=== PATIENT | male | born 1970 | race Caucasian/White ===

== ENCOUNTER 2016-05-22 17:50 | Emergency (ER) | payer BC ==
[~2016-05-22] VITALS: Ht 165.1 cm; Wt 117.9 kg
[2016-05-22] MEDS ORDERED: VITA100037 PO (18:00)
[2016-05-22] MEDS ORDERED: APRI0.37 (18:00)
[2016-05-22] MEDS ORDERED: PROBCAP4 PO (18:00)
[2016-05-22] MEDS ORDERED: ATOR40TA (18:00)
[2016-05-22] MEDS ORDERED: ONDANSETRON 4MG/2ML VIAL (J2405) IV ONE (20:45)
[2016-05-22] MEDS ORDERED: NS 1,000 ML IV ONE (20:45)
[2016-05-22] MEDS ORDERED: KETOROLAC 30 MG/ML VIAL (J1885) IV ONE (20:45)
[2016-05-22 20:59] LABS: BASO % 0.2 % (0.0-1.0); EOS # 0.2 K/mm3 (0.0-0.50); EOS % 1.2 % (0.0-3.0); LARGE UNSTAINED CELL # 0.1 K/mm3 (0.0-0.4); LARGE UNSTAINED CELL % 0.5 % (0.0-4.0); LYMPH # 0.5 K/mm3 (1.5-4.5); MEAN CORPUSCULAR HEMOGLOBIN 29.4 pg (27.0-33.0); MEAN CORPUSCULAR HGB CONC 35.4 g/dl (32.0-36.5); MEAN CORPUSCULAR VOLUME 83.1 fl (80.0-96.0); MONO # 0.5 K/mm3 (0.0-0.8); MONO % 3.1 % (0.0-5.0); NEUTROPHILS # 13.5 K/mm3 (1.8-7.7); NEUTROPHILS % 92.1 % (36.0-66.0); PLATELET COUNT, AUTOMATED 282 k/mm3 (150-450); RED CELL DISTRIBUTION WIDTH 12.9 % (11.5-14.5); WHITE BLOOD COUNT 14.7 K/mm3 (4.0-10.0)
[2016-05-22 21:39] LABS: ALBUMIN 3.9 GM/DL (3.2-5.2); ALBUMIN/GLOBULIN RATIO 1.18 (1.00-1.93); ALKALINE PHOSPHATASE 102 U/L (45-117); ALT/SGPT 28 U/L (12-78); AMYLASE 34 U/L (25-115); ANION GAP 9 MEQ/L (8-16); AST/SGOT 26 U/L (15-37); BILIRUBIN,DIRECT 0.2 MG/DL (0.0-0.2); BILIRUBIN,TOTAL 1.6 MG/DL (0.2-1.0); BLOOD UREA NITROGEN 12 MG/DL (7-18); CALCIUM LEVEL 8.4 MG/DL (8.5-10.1); CARBON DIOXIDE LEVEL 23 MEQ/L (21-32); CHLORIDE LEVEL 105 MEQ/L (98-107); CREATININE FOR GFR 0.84 MG/DL (0.70-1.30); GLOMERULAR FILTRATION RATE > 60.0 (>60); GLUCOSE, FASTING 111 MG/DL (70-105); POTASSIUM SERUM 3.9 MEQ/L (3.5-5.1); SODIUM LEVEL 137 MEQ/L (136-145); TOTAL PROTEIN 7.2 GM/DL (6.4-8.2)
[2016-05-22] MEDS ORDERED: ZOFR4TAB3 PO (22:49)
[2016-05-22 22:55] VITALS: BP 132/69
--- NOTE | 2016-05-23 10:42 | ECGEPIP ---
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
== END 2016-05-22 23:01 | disposition home or self-care (01) ==
LOC: M ED 20:18
DX: A08.4 Viral intestinal infection, unspecified (principal); K51.90 Ulcerative colitis, unspecified, without complications; Z87.442 Personal history of urinary calculi; M19.90 Unspecified osteoarthritis, unspecified site
CPT/HCPCS: 36415; 80048; 80076; 81001; 82150; 83690; 85025; 93005; 96374; 96375; 99283; J1885; J2405

== ENCOUNTER → 2016-08-13 | Outpatient (REF) | payer BC ==
[~2016-08-13] MED LIST: APRI0.37; ATOR40TA; PROBCAP4 PO; VITA100037 PO; ZOFR4TAB3 PO
[2016-08-13 12:10] LABS: ALBUMIN 3.7 GM/DL (3.2-5.2); ALBUMIN/GLOBULIN RATIO 1.03 (1.00-1.93); ALKALINE PHOSPHATASE 92 U/L (45-117); ALT/SGPT 34 U/L (12-78); ANION GAP 5 MEQ/L (8-16); AST/SGOT 15 U/L (15-37); BILIRUBIN,TOTAL 0.9 MG/DL (0.2-1.0); BLOOD UREA NITROGEN 11 MG/DL (7-18); CARBON DIOXIDE LEVEL 31 MEQ/L (21-32); CHLORIDE LEVEL 107 MEQ/L (98-107); CHOLESTEROL LEVEL 180 MG/DL (<200); CREATININE FOR GFR 0.83 MG/DL (0.70-1.30); GLOMERULAR FILTRATION RATE > 60.0 (>60); GLUCOSE, FASTING 89 MG/DL (70-105); POTASSIUM SERUM 4.7 MEQ/L (3.5-5.1); SODIUM LEVEL 143 MEQ/L (136-145); TOTAL PROTEIN 7.3 GM/DL (6.4-8.2); TRIGLYCERIDES LEVEL 159 MG/DL (<150)
== END ==
LOC: M LABDRAW1 11:23
PROVIDERS: ATTEND Physician Assistant Medical
DX: E78.5 Hyperlipidemia, unspecified (principal); E55.9 Vitamin D deficiency, unspecified; Z00.00 Encounter for general adult medical examination without abnormal findings; Z12.5 Encounter for screening for malignant neoplasm of prostate

== ENCOUNTER → 2017-01-02 | Outpatient (REF) | payer BC ==
[~2017-01-02] MED LIST changes: -ATOR40TA; +ATOR40TA75; -VITA100037 PO; +VITA100067 PO
[2017-01-02 18:26] LABS: BASO % 0.5 % (0.0-1.0); EOS # 0.1 10^3/uL (0.0-0.50); EOS % 1.4 % (0.0-3.0); IMMATURE GRANULOCYTE % 0.2 % (0-0); LYMPH # 2.2 10^3/uL (1.5-4.5); LYMPH % 25.6 % (24.0-44.0); MEAN CORPUSCULAR HEMOGLOBIN 28.8 pg (27.0-33.0); MEAN CORPUSCULAR HGB CONC 34.1 g/dl (32.0-36.5); MEAN CORPUSCULAR VOLUME 84.5 fl (80.0-96.0); MONO # 0.7 10^3/uL (0.0-0.8); MONO % 8.4 % (0.0-5.0); NEUTROPHILS # 5.4 10^3/uL (1.8-7.7); NEUTROPHILS % 63.9 % (36.0-66.0); PLATELET COUNT, AUTOMATED 311 10^3/uL (150-450); RED CELL DISTRIBUTION WIDTH 12.8 % (11.5-14.5); WHITE BLOOD COUNT 8.5 10^3/uL (4.0-10.0)
[2017-01-02 20:22] LABS: ANION GAP 6 MEQ/L (8-16); BLOOD UREA NITROGEN 10 MG/DL (7-18); CALCIUM LEVEL 9.2 MG/DL (8.5-10.1); CARBON DIOXIDE LEVEL 30 MEQ/L (21-32); CHLORIDE LEVEL 105 MEQ/L (98-107); CHOLESTEROL LEVEL 216 MG/DL (<200); CREATININE FOR GFR 0.79 MG/DL (0.70-1.30); FREE T4 0.98 NG/DL (0.76-1.46); GLOMERULAR FILTRATION RATE > 60.0 (>60); GLUCOSE, FASTING 82 MG/DL (70-105); POTASSIUM SERUM 4.6 MEQ/L (3.5-5.1); SODIUM LEVEL 141 MEQ/L (136-145); TRIGLYCERIDES LEVEL 208 MG/DL (<150)
[2017-01-03 11:06] LABS: CONTROL LINE MONO INT CTR LINE PRESENT
== END ==
LOC: M LABDRAW1 14:40
PROVIDERS: ATTEND Physician Assistant Medical
DX: R53.83 Other fatigue (principal); E78.5 Hyperlipidemia, unspecified; R73.01 Impaired fasting glucose

== ENCOUNTER → 2017-03-20 | Outpatient (CLI) | payer BC | LOC: M SLEEP HO 11:39 | PROVIDERS: ATTEND Nurse Practitioner Adult Health | DX: G47.30 Sleep apnea, unspecified (principal) ==

== ENCOUNTER 2017-06-16 02:01 | Emergency (ER) | payer BC ==
[2017-06-16 03:32] LABS: BASO # 0.1 10^3/uL (0.0-0.2); BASO % 0.7 % (0.0-1.0); EOS # 0.2 10^3/uL (0.0-0.50); EOS % 1.9 % (0.0-3.0); HEMATOCRIT 44.6 % (42.0-52.0); HEMOGLOBIN 15.3 g/dl (14.0-18.0); IMMATURE GRANULOCYTE % 0.4 % (0-3.0); LYMPH # 2.7 10^3/uL (1.5-4.5); LYMPH % 26.2 % (24.0-44.0); MEAN CORPUSCULAR HEMOGLOBIN 28.9 pg (27.0-33.0); MEAN CORPUSCULAR HGB CONC 34.3 g/dl (32.0-36.5); MEAN CORPUSCULAR VOLUME 84.2 fl (80.0-96.0); MONO # 0.8 10^3/uL (0.0-0.8); MONO % 7.7 % (0.0-5.0); NEUTROPHILS # 6.5 10^3/uL (1.8-7.7); NEUTROPHILS % 63.1 % (36.0-66.0); PLATELET COUNT, AUTOMATED 339 10^3/uL (150-450); RED CELL DISTRIBUTION WIDTH 13.2 % (11.5-14.5); WHITE BLOOD COUNT 10.3 10^3/uL (4.0-10.0)
[2017-06-16 03:37] LABS: D-DIMER QUANT 395.9 ng/ml (<500)
[2017-06-16 03:44] LABS: ANION GAP 6 MEQ/L (8-16); BLOOD UREA NITROGEN 14 MG/DL (7-18); CALCIUM LEVEL 8.8 MG/DL (8.5-10.1); CARBON DIOXIDE LEVEL 27 MEQ/L (21-32); CHLORIDE LEVEL 109 MEQ/L (98-107); CPK CREATINE PHOSPHOKINASE 135 U/L (39-308); CREATININE FOR GFR 0.84 MG/DL (0.70-1.30); GLOMERULAR FILTRATION RATE > 60.0 (>60); GLUCOSE, FASTING 134 MG/DL (70-100); POTASSIUM SERUM 3.6 MEQ/L (3.5-5.1); SODIUM LEVEL 142 MEQ/L (136-145); TROPONIN I < 0.02 NG/ML (< 0.10)
[2017-06-16 03:45] LABS: CK-MB VALUE MASS 1.7 NG/ML (<3.6); MB/CK RELATIVE INDEX 1.25 (< OR =4)
[2017-06-16] MEDS: ASPIRIN 81 MG CHEW TABLET PO (04:13)
[2017-06-16] MEDS: NITROGLYCERIN 0.4 MG SUBL TABLET SL (04:14)
[2017-06-16] MEDS: GI COCKTAIL 50ML BTL(HYOSCYAMINE/MAALOX/LIDOCAINE VISCOUS)(1:3:1) PO (05:43)
== END 2017-06-16 07:00 | disposition home or self-care (01) ==
LOC: M ED 02:01
DX: K21.9 Gastro-esophageal reflux disease without esophagitis (principal); R94.31 Abnormal electrocardiogram [ECG] [EKG]; Z79.899 Other long term (current) drug therapy; Z87.19 Personal history of other diseases of the digestive system; Z82.49 Family history of ischemic heart disease and other diseases of the circulatory system
CPT/HCPCS: 71046

== ENCOUNTER → 2017-12-09 | Outpatient (REF) | payer BC ==
[2017-12-09 13:17] LABS: ALBUMIN 3.6 GM/DL (3.2-5.2); ALBUMIN/GLOBULIN RATIO 0.95 (1.00-1.93); ALKALINE PHOSPHATASE 106 U/L (45-117); ALT/SGPT 32 U/L (12-78); ANION GAP 11 MEQ/L (8-16); AST/SGOT 20 U/L (7-37); BLOOD UREA NITROGEN 11 MG/DL (7-18); CALCIUM LEVEL 8.5 MG/DL (8.5-10.1); CARBON DIOXIDE LEVEL 25 MEQ/L (21-32); CHLORIDE LEVEL 105 MEQ/L (98-107); CHOLESTEROL LEVEL 164 MG/DL (<200); CHOLESTEROL RISK RATIO 4.823 (<5); CREATININE FOR GFR 0.77 MG/DL (0.70-1.30); GLOMERULAR FILTRATION RATE > 60.0 (>60); GLUCOSE, FASTING 87 MG/DL (70-100); HDL CHOLESTEROL 34 MG/DL (>40); LDL CHOLESTEROL 101 MG/DL (<100); NON-HDL-C 130 MG/DL; POTASSIUM SERUM 3.6 MEQ/L (3.5-5.1); SODIUM LEVEL 141 MEQ/L (136-145); TOTAL PROTEIN 7.4 GM/DL (6.4-8.2); TRIGLYCERIDES LEVEL 143 MG/DL (<150)
== END ==
LOC: M LABDRAW1 08:09
DX: E78.5 Hyperlipidemia, unspecified (principal); R07.9 Chest pain, unspecified
CPT/HCPCS: 80053

== ENCOUNTER → 2018-05-22 | Outpatient (REF) | payer BC ==
[~2018-05-22] MED LIST changes: +MULTCHW14 PO; +OMEP40CA2 PO; +ZOFR4TAB14 PO; -ZOFR4TAB3 PO
[2018-05-22 18:21] LABS: BASO # 0.1 10^3/uL (0.0-0.2); BASO % 0.5 % (0.0-1.0); EOS # 0.2 10^3/uL (0.0-0.50); HEMATOCRIT 44.6 % (42.0-52.0); HEMOGLOBIN 15.2 g/dl (13.5-17.5); LYMPH # 2.2 10^3/uL (1.5-4.5); LYMPH % 21.7 % (24.0-44.0); MEAN CORPUSCULAR HEMOGLOBIN 28.2 pg (27.0-33.0); MEAN CORPUSCULAR HGB CONC 34.1 g/dl (32.0-36.5); MEAN CORPUSCULAR VOLUME 82.7 fl (80.0-96.0); MONO # 0.8 10^3/uL (0.0-0.8); MONO % 7.9 % (0.0-5.0); NEUTROPHILS # 6.9 10^3/uL (1.8-7.7); NEUTROPHILS % 67.5 % (36.0-66.0); PLATELET COUNT, AUTOMATED 337 10^3/uL (150-450); RED BLOOD COUNT 5.39 10^6/uL (4.30-6.10); WHITE BLOOD COUNT 10.3 10^3/uL (4.0-10.0)
[2018-05-22 19:31] LABS: ERYTHROCYTE SEDIMENTATION RATE 9 mm/hr (0-15)
== END ==
LOC: M LAB REF 17:02 → M LABDRAW1 17:02
PROVIDERS: ATTEND Physician Assistant Medical
DX: K62.5 Hemorrhage of anus and rectum (principal)

== ENCOUNTER → 2018-05-23 | Outpatient (REF) | payer BC | LOC: M LAB REF 16:42 | PROVIDERS: ATTEND Physician Assistant Medical | DX: K62.5 Hemorrhage of anus and rectum (principal) ==

== ENCOUNTER 2018-06-03 20:58 | Emergency (ER) | payer BC ==
[~2018-06-03] VITALS: Ht 165.1 cm; Wt 127.3 kg
[~2018-06-03 20:58] MED LIST changes: -APRI0.37; +APRI0.37 PO; -ATOR40TA75; +ATOR40TA75 PO
[2018-06-03] MEDS ORDERED: HYDR12.55 PO (21:17)
[2018-06-03 21:35] LABS: APPEARANCE, URINE HAZY (CLEAR); BACTERIA, URINE AUTO NEGATIVE (NEGATIVE); BILIRUBIN, URINE AUTO NEGATIVE (NEGATIVE); BLOOD, URINE BLOOD 3+ (NEGATIVE); COLOR, URINE YELLOW (YELLOW); GLUCOSE, URINE (UA) AUTO NEGATIVE (NEGATIVE); KETONE, URINE AUTO NEGATIVE (NEGATIVE); LEUKOCYTE ESTERASE, URINE AUTO NEGATIVE (NEGATIVE); MUCUS, URINE SMALL (NEGATIVE); NITRITE, URINE AUTO NEGATIVE (NEGATIVE); PROTEIN, URINE AUTO 1+ mg/dL (NEGATIVE); RBC, URINE AUTO TNTC /HPF (0-3); SPECIFIC GRAVITY URINE AUTO 1.029 (1.002-1.035); SQUAMOUS EPITHELIAL CELL UR AU 0 /HPF (0-6); WBC, URINE AUTO 7 /HPF (0-3)
[2018-06-03 22:25] LABS: BASO # 0.1 10^3/uL (0.0-0.2); BASO % 0.5 % (0.0-1.0); EOS # 0.1 10^3/uL (0.0-0.50); EOS % 1.2 % (0.0-3.0); HEMATOCRIT 45.8 % (42.0-52.0); HEMOGLOBIN 15.4 g/dl (13.5-17.5); LYMPH # 2.1 10^3/uL (1.5-4.5); LYMPH % 20.6 % (24.0-44.0); MEAN CORPUSCULAR HEMOGLOBIN 28.3 pg (27.0-33.0); MEAN CORPUSCULAR HGB CONC 33.6 g/dl (32.0-36.5); MEAN CORPUSCULAR VOLUME 84.2 fl (80.0-96.0); MONO # 0.8 10^3/uL (0.0-0.8); MONO % 7.9 % (0.0-5.0); NEUTROPHILS # 7.2 10^3/uL (1.8-7.7); NEUTROPHILS % 69.5 % (36.0-66.0); PLATELET COUNT, AUTOMATED 325 10^3/uL (150-450); RED BLOOD COUNT 5.44 10^6/uL (4.30-6.10); WHITE BLOOD COUNT 10.3 10^3/uL (4.0-10.0)
[2018-06-03 22:50] LABS: BLOOD UREA NITROGEN 15 MG/DL (7-18); CALCIUM LEVEL 8.9 MG/DL (8.5-10.1); CARBON DIOXIDE LEVEL 30 MEQ/L (21-32); CHLORIDE LEVEL 107 MEQ/L (98-107); CREATININE FOR GFR 0.94 MG/DL (0.70-1.30); GLOMERULAR FILTRATION RATE > 60.0 (>60); GLUCOSE, FASTING 105 MG/DL (70-100); POTASSIUM SERUM 4.2 MEQ/L (3.5-5.1); SODIUM LEVEL 143 MEQ/L (136-145)
[2018-06-03] MEDS ORDERED: FLOM0.4C39 PO (23:33)
--- NOTE | 2018-06-03 23:37 | REPVR ---
EXAM: CT Abdomen and Pelvis Without Contrast EXAM DATE/TIME: 06/03/2018 10:32 PM CLINICAL HISTORY: 47 years old, male; Pain; Abdominal pain; Flank; Left; Additional info: L flank pain, h/o kidney stones TECHNIQUE: Axial computed tomography images of the abdomen and pelvis without contrast. All CT scans at this facility use at least one of these dose optimization techniques: automated exposure control; mA and/or kV adjustment per patient size (includes targeted exams where dose is matched to clinical indication); or iterative reconstruction. Coronal and sagittal reformatted images were created and reviewed. COMPARISON: CT ABD PELVIS W/O CONTRAST 04/29/2015 9:47 AM FINDINGS: Lower thorax: No acute findings. ABDOMEN: Liver: Normal. No mass. Gallbladder and bile ducts: Normal. No calcified stones. No ductal dilation. Pancreas: Normal. No ductal dilation. Spleen: Normal. No splenomegaly. Adrenals: Normal. No mass. Kidneys and ureters: Calculus in the left renal pelvis may be obstructive. No significant hydronephrosis. Punctate really visible density near the right UV junction may represent a small calculus. No significant hydroureteronephrosis on the right. 14 millimeters cyst in the lower pole of left kidney. Stomach and bowel: 3.3 x 3.6 cm. polypoid filling defect in the cecum adjacent to the ileocecal valve. Polypoid mass not excluded and should be correlated with colonoscopy or barium enema. Appendix: No evidence of appendicitis. PELVIS: Bladder: Unremarkable as visualized. Reproductive: The prostate gland demonstrates moderate hyperplasia. ABDOMEN and PELVIS: Intraperitoneal space: Normal. No free air. No significant fluid collection. Bones/joints: The spine demonstrates mild degenerative changes. Soft tissues: Unremarkable. Vasculature: Normal. No abdominal aortic aneurysm. Lymph nodes: Normal. No enlarged lymph nodes. IMPRESSION: 1. Calculus in the left renal pelvis may be obstructive. No significant hydronephrosis. 2. Punctate really visible density near the right UV junction may represent a small calculus. No significant hydroureteronephrosis on the right. 3. Moderate prostatic hyperplasia. 4. 3.3 x 3.6 cm. polypoid filling defect in the cecum adjacent to the ileocecal valve. Polypoid mass not excluded and should be correlated with colonoscopy or barium enema. COMMENT: Consistent with the [employer] Incidental Findings Committee Report (J Am Romina Radiol 2010): Unless the patients specific circumstances suggest otherwise, any liver lesion 0.5 cm or less, any cystic kidney lesion less than 1.0 cm, and/or any adrenal lesion 1.0 cm or less not otherwise characterized in this report as possessing suspicious or indeterminate imaging features is/are highly likely to be benign and do not require follow-up imaging or biopsy. Electronically signed by: Amarjit Huynh On 06/03/2018 23:36:43 PM
[2018-06-04] MEDS ORDERED: ZOFR4TAB16 PO (00:02)
[2018-06-04] MEDS ORDERED: [UNRECOGNIZED DRUG - CODE] XX (00:03)
[2018-06-04 00:07] VITALS: BP 122/76
--- NOTE | 2018-06-04 15:29 | ED PDOC ---
Post-Departure Follow-Up fidel han faxed formal report of ct abd/p fo rfu Landy Bradshaw MD Jun 04, 2018 15:29
[2018-06-16] MEDS ORDERED: LOSA25TA14 PO (15:48)
[2018-06-16] MEDS ORDERED: ZOFR4TAB16 PO (15:48)
== END 2018-06-04 00:17 | disposition home or self-care (01) ==
LOC: M ED 20:58
DX: N20.0 Calculus of kidney (principal); N20.1 Calculus of ureter; K51.90 Ulcerative colitis, unspecified, without complications; I10 Essential (primary) hypertension; E78.5 Hyperlipidemia, unspecified; Z79.899 Other long term (current) drug therapy

== ENCOUNTER → 2018-06-05 | Outpatient (CLI) | payer BC ==
[~2018-06-05] MED LIST changes: +APRI0.37; -APRI0.37 PO; +ATOR40TA75; -ATOR40TA75 PO; +FLOM0.4C39 PO; +HYDR12.55 PO; +ZOFR4TAB16 PO; +[UNRECOGNIZED DRUG - CODE] XX
--- NOTE | 2018-06-06 03:02 | REP ---
Clinical: Kidney stone. Technique: Two supine views of the abdomen and pelvis. Findings: Small 3 mm nonobstructing left renal calculus cannot be excluded. Further evaluation of the urinary tract system is significantly limited due to overlying bowel gas and technique. Skeletal structures are intact. No bowel obstruction. Phleboliths noted in the pelvis. Impression: 3 mm nonobstructing left renal calculus suggested. Electronically Signed by Bryce Aguilar MD 06/06/2018 02:53 A
== END ==
LOC: M SMT 08:59
PROVIDERS: ATTEND Nurse Practitioner Family
DX: N20.0 Calculus of kidney (principal)

== ENCOUNTER → 2018-06-16 | Outpatient (REF) | payer BC ==
[~2018-06-16] MED LIST changes: -APRI0.37; +APRI0.37 PO; -ATOR40TA75; +ATOR40TA75 PO; +BACT800T5 PO; +LOSA25TA14 PO; +NORC1TAB4 PO; +TYLETAB14 PO
[2018-06-16 17:21] LABS: HEMATOCRIT 42.2 % (42.0-52.0); HEMOGLOBIN 14.4 g/dl (13.5-17.5); MEAN CORPUSCULAR HGB CONC 34.1 g/dl (32.0-36.5); MEAN CORPUSCULAR VOLUME 81.9 fl (80.0-96.0); PLATELET COUNT, AUTOMATED 338 10^3/uL (150-450); RED BLOOD COUNT 5.15 10^6/uL (4.30-6.10); WHITE BLOOD COUNT 11.6 10^3/uL (4.0-10.0)
[2018-06-16 17:30] LABS: BLOOD UREA NITROGEN 12 MG/DL (7-18); CALCIUM LEVEL 9.1 MG/DL (8.5-10.1); CARBON DIOXIDE LEVEL 30 MEQ/L (21-32); CHLORIDE LEVEL 104 MEQ/L (98-107); GLOMERULAR FILTRATION RATE > 60.0 (>60); GLUCOSE, FASTING 90 MG/DL (70-100); INR 0.98; PROTHROMBIN TIME 13.1 SECONDS (12.1-14.4); SODIUM LEVEL 141 MEQ/L (136-145)
[2018-06-16 17:31] LABS: PARTIAL THROMBOPLASTIN TIME 32.9 SECONDS (25.4-37.6)
== END ==
LOC: M LABDRAW1 15:29
PROVIDERS: ATTEND Nurse Practitioner Family
DX: Z01.818 Encounter for other preprocedural examination (principal); N20.0 Calculus of kidney

== ENCOUNTER → 2018-06-17 | Outpatient (CLI) | payer BC ==
--- NOTE | 2018-06-18 21:22 | ECGEPIP ---
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
== END ==
LOC: M EKG 15:03
PROVIDERS: ATTEND Anesthesiology
DX: Z01.818 Encounter for other preprocedural examination (principal); I10 Essential (primary) hypertension; G47.9 Sleep disorder, unspecified

== ENCOUNTER 2018-06-19 06:26 | Day surgery (SDC) | payer BC ==
[~2018-06-19] VITALS: Ht 165.1 cm; Wt 122.9 kg
[~2018-06-19 06:26] MED LIST changes: -BACT800T5 PO; +LIDOCAINE 1% MDV 20ML VIAL SQ PRN; +LR 1,000 ML IV ONE; -NORC1TAB4 PO; -TYLETAB14 PO; +ceFAZolin SOD 1 GM in D5W MINI-BAG PLUS 50 ML IV ONE
[2018-06-19] MEDS ORDERED: PROPOFOL 200 MG/20 ML VIAL As Ordered ONE ×2 (07:10→07:57)
[2018-06-19] MEDS ORDERED: fentaNYL 100 MCG/2 ML INJECTION (J3010) As Ordered ONE (07:10)
[2018-06-19] MEDS ORDERED: MIDAZOLAM INJ 2 MG/2 ML VIAL (J2250) As Ordered ONE (07:10)
[2018-06-19] MEDS ORDERED: LIDOCAINE 2% INJ 100 MG/5 ML SDV (FOR ANES.) As Ordered ONE (07:10)
[2018-06-19] MEDS ORDERED: SCOPOLAMINE 1MG TRANSDERMAL PATCH As Ordered ONE (07:14)
[2018-06-19] MEDS ORDERED: ONDANSETRON 4MG/2ML VIAL (J2405) As Ordered ONE (07:41)
[2018-06-19] MEDS ORDERED: dexameTHASONE 4 MG/ML 1ML VIAL (J1100) As Ordered ONE (07:41)
[2018-06-19] MEDS ORDERED: PHENYLephrine HCL 500 MCG/5 ML (100MCG/ML) SYRINGE (J2370) As Ordered ONE (07:44)
[2018-06-19] MEDS ORDERED: TYLETAB14 PO (08:43)
[2018-06-19] MEDS ORDERED: ACETAMINOPH W/CODEINE #3 TAB UD PO PRN (08:45)
--- NOTE | 2018-06-19 09:08 | REP ---
KUB: Single view. History: Kidney stones. Comparison is made with CT study from June 03, 2018. Findings: Bowel gas pattern is unremarkable. Transitionalized lumbosacral junction is seen. There is a 4 mm calcific density projecting over the lower pole left kidney superimposed on the tip of the left 12th rib. This corresponds with the recent CT findings. No other urinary tract calculus is appreciated. There are phleboliths in the pelvis. Electronically Signed by Kayode Espnio MD 06/19/2018 12:00 P
[2018-06-19 09:30] VITALS: BP 154/84
[2018-06-19] MEDS ORDERED: SCOPOLAMINE 1MG TRANSDERMAL PATCH TOP ONE (12:00)
--- NOTE | 2018-06-19 17:14 | RO ---
DATE OF PROCEDURE: 06/19/2018 PREOPERATIVE DIAGNOSIS: 6 mm left mid renal pelvic stone. POSTOPERATIVE DIAGNOSIS: 6 mm left mid renal pelvic stone. PROCEDURE: Left extracorporeal shock wave lithotripsy. SURGEON: Dr. Mary Quick GLASSWARE SELECTOR: ANESTHESIA: Monitored anesthesia care (MAC). COMPLICATIONS: None. INDICATIONS FOR PROCEDURE: The patient is a 47-year-old gentleman who was seen in the emergency room on 06/03/2018 with flank pain. A CT scan was done, and this showed a stone in the left renal pelvis measuring 6 mm. He has passed several stones in the past. After discussing all different options, alternatives, risks and benefits, he decided to proceed with left extracorporeal shock wave lithotripsy. All different options, alternatives, risks and benefits were discussed and informed consent was obtained in both verbal and written form. DESCRIPTION OF PROCEDURE: The patient was brought into the operating room. Sequential compression devices were in place and preoperative antibiotics were given with Ancef 3 grams. Anesthesia was induced and using a combination of fluoroscopy and ultrasound, the stone was very well visualized. He then had a total of 2500 shocks with power levels starting at 1 up to 20. The patient tolerated the procedure well and was returned to the recovery room in stable condition. Tylenol #3 was sent to his pharmacy electronically through [employer]. A postoperative appointment had been made.
[2018-06-20] MEDS ORDERED: BACT800T5 PO (10:22)
[2018-06-20] MEDS ORDERED: NORC1TAB4 PO (10:32)
== END 2018-06-19 09:35 | disposition home or self-care (01) ==
LOC: M SDC 06:26
PROVIDERS: ATTEND Specialist
DX: N20.0 Calculus of kidney (principal); I10 Essential (primary) hypertension; G47.30 Sleep apnea, unspecified; Z79.899 Other long term (current) drug therapy; E66.01 Morbid (severe) obesity due to excess calories
CPT/HCPCS: 50590; 74018; J0690; J1100; J2250; J2370; J2405; J3010

== ENCOUNTER 2018-06-20 07:14 | Emergency (ER) | payer BC ==
[~2018-06-20] VITALS: Ht 165.1 cm; Wt 125.3 kg
[~2018-06-20 07:14] MED LIST changes: -LIDOCAINE 1% MDV 20ML VIAL SQ PRN; -LR 1,000 ML IV ONE; +TYLETAB14 PO; -ceFAZolin SOD 1 GM in D5W MINI-BAG PLUS 50 ML IV ONE
[2018-06-20 08:06] LABS: BASO % 0.2 % (0.0-1.0); EOS % 0.1 % (0.0-3.0); HEMATOCRIT 40.2 % (42.0-52.0); HEMOGLOBIN 14.2 g/dl (13.5-17.5); LYMPH # 2.4 10^3/uL (1.5-4.5); LYMPH % 13.8 % (24.0-44.0); MEAN CORPUSCULAR HEMOGLOBIN 28.5 pg (27.0-33.0); MEAN CORPUSCULAR HGB CONC 35.3 g/dl (32.0-36.5); MEAN CORPUSCULAR VOLUME 80.7 fl (80.0-96.0); MONO # 1.1 10^3/uL (0.0-0.8); MONO % 6.3 % (0.0-5.0); NEUTROPHILS # 13.5 10^3/uL (1.8-7.7); NEUTROPHILS % 79.1 % (36.0-66.0); PLATELET COUNT, AUTOMATED 330 10^3/uL (150-450); RED BLOOD COUNT 4.98 10^6/uL (4.30-6.10); WHITE BLOOD COUNT 17.1 10^3/uL (4.0-10.0)
--- NOTE | 2018-06-20 08:19 | REP ---
CT abdomen and pelvis without IV or oral contrast: Renal stone protocol. History: Renal colic. The patient status post lithotripsy. Comparison study: June 03, 2018. Findings: There is a 3 mm intrarenal calculus in the lower pole collecting system of the left kidney along with a tiny 1-2 mm calculus. There are two 3 mm stone fragments in the distal ureter on the left causing minimal left-sided hydronephrosis. The most distal of these is in the intramural segment of the ureterovesical junction. The other is just 1 cm above this. No right sided hydronephrosis or right-sided urinary tract calculus is seen. There is a small cyst again noted in the lower pole left kidney. Dystrophic calcifications are visible in the prostate. Impression: There are two 3 mm urinary tract calculi in the distal ureter on the left causing minimal left-sided hydronephrosis. The most distal of these is in the ureterovesical junction. Electronically Signed by Kayode Espino MD 06/20/2018 08:11 A
[2018-06-20 08:30] LABS: BLOOD UREA NITROGEN 13 MG/DL (7-18); CALCIUM LEVEL 8.4 MG/DL (8.5-10.1); CARBON DIOXIDE LEVEL 23 MEQ/L (21-32); CHLORIDE LEVEL 105 MEQ/L (98-107); CREATININE FOR GFR 0.98 MG/DL (0.70-1.30); GLOMERULAR FILTRATION RATE > 60.0 (>60); GLUCOSE, FASTING 145 MG/DL (70-100); POTASSIUM SERUM 3.4 MEQ/L (3.5-5.1); SODIUM LEVEL 138 MEQ/L (136-145)
[2018-06-20] MEDS: ONDANSETRON 4MG/2ML VIAL (J2405) IV ONE (08:37)
[2018-06-20] MEDS: KETOROLAC 30 MG/ML VIAL (J1885) IV ONE (08:37)
[2018-06-20] MEDS: TAMSULOSIN 0.4 MG CAP PO ONE (08:37)
[2018-06-20] MEDS: DILUENT IV ONE (08:38)
[2018-06-20] MEDS: KETAMINE IV ONE (08:38)
[2018-06-20] MEDS: NS 1,000 ML IV ONE (08:38)
[2018-06-20] MEDS: NACL IV ONE (08:38)
[2018-06-20] MEDS: LIDOCAINE 2% 5ML JELLY UROJET TOP ONE (09:39)
[2018-06-20] MEDS ORDERED: BACT800T5 PO (10:22)
[2018-06-20] MEDS: POTASSIUM CHLORIDE 10 MEQ SR TABLET PO ONE (10:28)
[2018-06-20] MEDS: BACTRIM 160MG/800MG DS TAB PO ONE (10:28)
[2018-06-20] MEDS ORDERED: NORC1TAB7 PO (10:32)
[2018-06-20 11:19] VITALS: BP 117/56
== END 2018-06-20 11:37 | disposition home or self-care (01) ==
LOC: M ED 07:14
DX: N20.0 Calculus of kidney (principal); Z98.890 Other specified postprocedural states; Z87.442 Personal history of urinary calculi; Z79.899 Other long term (current) drug therapy
CPT/HCPCS: 51701; 74176; 80048; 81001; 85025; 93041; 96365; 96366; 96375; 99285; J1885; J2405

== ENCOUNTER 2018-06-26 10:07 | Day surgery (SDC) | payer BC ==
[~2018-06-26] VITALS: Ht 165.1 cm; Wt 121.1 kg
[~2018-06-26 10:07] MED LIST changes: +BACT800T5 PO; +LIDOCAINE 2% INJ 100 MG/5 ML SDV (FOR ANES.) As Ordered ONE; +NORC1TAB7 PO; +PROPOFOL 200 MG/20 ML VIAL As Ordered ONE
[2018-06-26] MEDS: NS 1,000 ML IV ONE (10:40)
--- NOTE | 2018-06-26 11:57 | ROOR ---
Patient Name: Adryan Chavez Procedure Date: 06/26/2018 11:31 AM Date of : 1970 Age: 47 Room: [facility] Gender: Male Note Status: Finalized Procedure: Colonoscopy Indications: Follow-up of ulcerative colitis, Abnormal CT of the GI tract Providers: Larry Valdes Jr, MD Referring MD: ANUJA PADILLA Requesting Provider: Medicines: Propofol per Anesthesia Complications: No immediate complications. Procedure: Pre-Anesthesia Assessment: - Prior to the procedure, a History and Physical was performed, and patient medications and allergies were reviewed. The patient is competent. The risks and benefits of the procedure and the sedation options and risks were discussed with the patient. All questions were answered and informed consent was obtained. Patient identification and proposed procedure were verified by the physician and the nurse in the pre-procedure area and in the procedure room. Mental Status Examination: alert and oriented. Airway Examination: normal oropharyngeal airway and neck mobility. Respiratory Examination: clear to auscultation. CV Examination: normal. ASA Grade Assessment: II - A patient with mild systemic disease. After reviewing the risks and benefits, the patient was deemed in satisfactory condition to undergo the procedure. The anesthesia plan was to use moderate sedation / analgesia (conscious sedation). Immediately prior to administration of medications, the patient was re-assessed for adequacy to receive sedatives. The heart rate, respiratory rate, oxygen saturations, blood pressure, adequacy of pulmonary ventilation, and response to care were monitored throughout the procedure. The physical status of the patient was re-assessed after the procedure. The Colonoscope was introduced through the anus and advanced to the cecum, identified by appendiceal orifice and ileocecal valve. The colonoscopy was performed without difficulty. The patient tolerated the procedure well. The quality of the bowel preparation was adequate. Findings: The rectum, recto-sigmoid colon, sigmoid colon, descending colon, transverse colon, ascending colon, cecum, appendiceal orifice and ileocecal valve appeared normal. Nonbleeding ulcerated mucosa with stigmata of recent bleeding were present at the ileocecal valve. Biopsies were taken with a cold forceps for histology. Impression: - The rectum, recto-sigmoid colon, sigmoid colon, descending colon, transverse colon, ascending colon, cecum, appendiceal orifice and ileocecal valve are normal. - Mucosal ulceration. Biopsied. Recommendation: - Discharge patient to home (ambulatory). - Repeat colonoscopy in 5 years for screening purposes. Larry Valdes MD Larry Valdes Jr, MD 06/26/2018 11:57:11 AM Electronically signed by Larry Valdes Jr, MD Number of Addenda: 0 Note Initiated On: 06/26/2018 11:31 AM Estimated Blood Loss: Estimated blood loss: none.
[2018-06-26 12:20] VITALS: BP 134/87
== END 2018-06-26 12:29 | disposition home or self-care (01) ==
LOC: M OPP 10:07
PROVIDERS: ATTEND Surgery
DX: R93.3 Abnormal findings on diagnostic imaging of other parts of digestive tract (principal); Z87.19 Personal history of other diseases of the digestive system

== ENCOUNTER → 2018-07-09 | Outpatient (CLI) | payer BC ==
[~2018-07-09] MED LIST changes: -LIDOCAINE 2% INJ 100 MG/5 ML SDV (FOR ANES.) As Ordered ONE; -PROPOFOL 200 MG/20 ML VIAL As Ordered ONE
--- NOTE | 2018-07-09 11:49 | REP ---
KUB: Two views. HISTORY: Kidney stone. COMPARISON STUDY: June 19, 2018. FINDINGS: Visualized bowel gas pattern is normal. Air and stool seen in a nondistended colon. Psoas margins and flank stripes are intact. No urinary tract calculus is visible. There are phleboliths in the right pelvis. Electronically Signed by Kayode Espino MD 07/09/2018 08:05 P
== END ==
LOC: M SMT 09:02
PROVIDERS: ATTEND Nurse Practitioner Women's Health
DX: I87.8 Other specified disorders of veins (principal)

== ENCOUNTER → 2018-09-03 | Outpatient (REF) | payer BC ==
[2018-09-03 16:08] LABS: BLOOD UREA NITROGEN 14 MG/DL (7-18); CALCIUM LEVEL 8.8 MG/DL (8.5-10.1); CARBON DIOXIDE LEVEL 29 MEQ/L (21-32); CHLORIDE LEVEL 105 MEQ/L (98-107); CREATININE FOR GFR 0.93 MG/DL (0.70-1.30); GLOMERULAR FILTRATION RATE > 60.0 (>60); GLUCOSE, FASTING 97 MG/DL (70-100); POTASSIUM SERUM 3.9 MEQ/L (3.5-5.1); SODIUM LEVEL 141 MEQ/L (136-145)
== END ==
LOC: M LABDRAW1 13:58
PROVIDERS: ATTEND Physician Assistant Medical
DX: I10 Essential (primary) hypertension (principal)

== ENCOUNTER 2019-02-17 21:02 | Emergency (ER) | payer BC ==
[~2019-02-17] VITALS: Ht 165.1 cm; Wt 126.4 kg
[~2019-02-17 21:02] MED LIST changes: -OMEP40CA2 PO; +OMEP40CA97 PO
[2019-02-17 21:52] LABS: BASO % 0.2 % (0.0-1.0); HEMOGLOBIN 14.9 g/dl (13.5-17.5); LYMPH # 0.9 10^3/uL (1.5-5.0); LYMPH % 4.9 % (24.0-44.0); MEAN CORPUSCULAR HEMOGLOBIN 28.2 pg (27.0-33.0); MEAN CORPUSCULAR HGB CONC 34.7 g/dl (32.0-36.5); MEAN CORPUSCULAR VOLUME 81.4 fl (80.0-96.0); MONO # 0.9 10^3/uL (0.0-0.8); MONO % 5.3 % (0.0-5.0); NEUTROPHILS # 15.7 10^3/uL (1.5-8.5); NEUTROPHILS % 89.1 % (36.0-66.0); PLATELET COUNT, AUTOMATED 286 10^3/uL (150-450); RED BLOOD COUNT 5.28 10^6/uL (4.30-6.10); WHITE BLOOD COUNT 17.6 10^3/uL (4.0-10.0)
[2019-02-17] MEDS ORDERED: NS 1,000 ML IV ONE (22:15)
[2019-02-17 22:18] LABS: ALBUMIN 3.7 GM/DL (3.2-5.2); ALT/SGPT 30 U/L (12-78); BILIRUBIN,DIRECT 0.3 MG/DL (0.0-0.2); BILIRUBIN,TOTAL 1.6 MG/DL (0.2-1.0); BLOOD UREA NITROGEN 12 MG/DL (7-18); CALCIUM LEVEL 8.8 MG/DL (8.5-10.1); CARBON DIOXIDE LEVEL 25 MEQ/L (21-32); CHLORIDE LEVEL 102 MEQ/L (98-107); CREATININE FOR GFR 0.84 MG/DL (0.70-1.30); GLOMERULAR FILTRATION RATE > 60.0 (>60); GLUCOSE, FASTING 119 MG/DL (70-100); LIPASE 77 U/L (73-393); POTASSIUM SERUM 3.5 MEQ/L (3.5-5.1); SODIUM LEVEL 136 MEQ/L (136-145); TOTAL PROTEIN 7.4 GM/DL (6.4-8.2)
[2019-02-17] MEDS ORDERED: ISOVUE-370 76% 100ML VIAL (Q9967) As Ordered ONE (23:14)
[2019-02-17] MEDS ORDERED: KETOROLAC 30 MG/ML VIAL (J1885) IV ONE (23:45)
[2019-02-17] MEDS ORDERED: ONDANSETRON 4MG/2ML VIAL (J2405) IV ONE (23:45)
--- NOTE | 2019-02-18 00:28 | REPVR ---
PROCEDURE INFORMATION: Exam: CT Abdomen And Pelvis Without And With Contrast Exam date and time: 02/17/2019 11:45 PM Age: 48 years old Clinical history: Abdominal pain; Flank; Additional info: Flank pain, HX of ulcerative colitis TECHNIQUE: Imaging protocol: Computed tomography of the abdomen and pelvis without and with intravenous contrast. Radiation optimization: All CT scans at this facility use at least one of these dose optimization techniques: automated exposure control; mA and/or kV adjustment per patient size (includes targeted exams where dose is matched to clinical indication); or iterative reconstruction. Contrast material: ISOVUE 370; Contrast volume: 100 ml; Contrast route: IV; COMPARISON: CT ABD PELVIS W/O CONTRAST 06/20/2018 7:50 AM FINDINGS: Lungs: Minimal bilateral lower lobe dependent atelectasis. Liver: Normal. No mass. Gallbladder and bile ducts: Normal. No calcified stones. No ductal dilation. Pancreas: Normal. No ductal dilation. Spleen: Normal. No splenomegaly. Adrenals: Normal. No mass. Kidneys and ureters: There is a left renal cyst measuring up to 15 mm. Minimal nonobstructing right renal calculus in the upper pole. Stomach and bowel: Unremarkable. No obstruction. No mucosal thickening. Appendix: The appendix measures up to 9 mm with no surrounding induration and is similar to the prior study and apparently within normal limits. Intraperitoneal space: Unremarkable. No free air. No significant fluid collection. Vasculature: Unremarkable. No abdominal aortic aneurysm. Lymph nodes: Unremarkable. No enlarged lymph nodes. Bladder: Unremarkable as visualized. Reproductive: There is mild prostatic enlargement. Bones/joints: Facet arthropathy of the lumbar spine with slightly increased lumbar lordosis. Slight anterior wedge configuration of T11 which appears to be chronic. Soft tissues: Unremarkable. IMPRESSION: 1. Minimal nonobstructing right renal calculus. There is interval absence of nonobstructing left renal calculi since 06/20/2018. No ureteral calculi are evident and there is no evidence of obstructive uropathy. 2. The appendix measures up to 9 mm with no surrounding induration and is similar to the prior study and consistent with normal variant and within normal limits. 3. Mild prostatic enlargement which is similar to prior study. Electronically signed by: Carmine Gusman On 02/18/2019 00:27:42 AM
[2019-02-18] MEDS ORDERED: ZOFR8TAB24 PO (01:16)
[2019-02-18] MEDS ORDERED: KETO10TAB PO (01:17)
[2019-02-18 01:33] VITALS: BP 128/82
== END 2019-02-18 01:34 | disposition home or self-care (01) ==
LOC: M ED 21:02
DX: N20.0 Calculus of kidney (principal); I10 Essential (primary) hypertension; E78.5 Hyperlipidemia, unspecified; K21.9 Gastro-esophageal reflux disease without esophagitis; K51.90 Ulcerative colitis, unspecified, without complications; Z79.899 Other long term (current) drug therapy
CPT/HCPCS: 74178; 80048; 80076; 81001; 83690; 85025; 96361; 96374; 96375; 99284; J1885; J2405; Q9967

== ENCOUNTER → 2019-04-20 | Outpatient (REF) | payer BC ==
[~2019-04-20] MED LIST changes: +KETO10TAB PO; +ZOFR8TAB24 PO
[2019-04-20 18:09] LABS: BASO % 0.5 % (0.0-1.0); EOS # 0.1 10^3/uL (0.0-0.5); EOS % 1.2 % (0.0-3.0); HEMATOCRIT 47.8 % (42.0-52.0); HEMOGLOBIN 15.6 g/dl (13.5-17.5); LYMPH # 2.3 10^3/uL (1.5-5.0); LYMPH % 27.9 % (24.0-44.0); MEAN CORPUSCULAR HEMOGLOBIN 27.8 pg (27.0-33.0); MEAN CORPUSCULAR HGB CONC 32.6 g/dl (32.0-36.5); MEAN CORPUSCULAR VOLUME 85.1 fl (80.0-96.0); MONO # 0.6 10^3/uL (0.0-0.8); MONO % 7.5 % (0.0-5.0); NEUTROPHILS # 5.2 10^3/uL (1.5-8.5); NEUTROPHILS % 62.5 % (36.0-66.0); PLATELET COUNT, AUTOMATED 323 10^3/uL (150-450); RED BLOOD COUNT 5.62 10^6/uL (4.30-6.10); WHITE BLOOD COUNT 8.3 10^3/uL (4.0-10.0)
[2019-04-20 18:26] LABS: ALT/SGPT 31 U/L (12-78); BILIRUBIN,TOTAL 1.2 MG/DL (0.2-1.0); BLOOD UREA NITROGEN 12 MG/DL (7-18); CALCIUM LEVEL 9.5 MG/DL (8.5-10.1); CARBON DIOXIDE LEVEL 30 MEQ/L (21-32); CHLORIDE LEVEL 105 MEQ/L (98-107); CHOLESTEROL LEVEL 179 MG/DL (<200); CHOLESTEROL RISK RATIO 5.264 (<5); CREATININE FOR GFR 0.91 MG/DL (0.70-1.30); GLOMERULAR FILTRATION RATE > 60.0 (>60); GLUCOSE, FASTING 97 MG/DL (70-100); HDL CHOLESTEROL 34 MG/DL (>40); LDL CHOLESTEROL 106 MG/DL (<100); NON-HDL-C 145 MG/DL; SODIUM LEVEL 140 MEQ/L (136-145); TOTAL 25(OH) VITAMIN D 40.2 NG/ML (30.0-100.0); TOTAL PROTEIN 7.6 GM/DL (6.4-8.2); TRIGLYCERIDES LEVEL 196 MG/DL (<150)
== END ==
LOC: M LABDRAW1 14:25
PROVIDERS: ATTEND Physician Assistant
DX: I10 Essential (primary) hypertension (principal); G47.33 Obstructive sleep apnea (adult) (pediatric); E55.9 Vitamin D deficiency, unspecified

== ENCOUNTER → 2020-05-18 | Outpatient (CLI) | payer BC ==
[2020-05-18 08:19] LABS: HEMOGLOBIN A1c 5.9 %
[2020-05-18 08:25] LABS: ALBUMIN 4.2 GM/DL (3.2-5.2); ALT/SGPT 37 U/L (12-78); BILIRUBIN,TOTAL 0.9 MG/DL (0.2-1.0); BLOOD UREA NITROGEN 12 MG/DL (7-18); CALCIUM LEVEL 9.3 MG/DL (8.5-10.1); CARBON DIOXIDE LEVEL 28 MEQ/L (21-32); CHLORIDE LEVEL 106 MEQ/L (98-107); CHOLESTEROL LEVEL 182 MG/DL (<200); CHOLESTEROL RISK RATIO 4.666 (<5); CREATININE FOR GFR 0.97 MG/DL (0.70-1.30); GLOMERULAR FILTRATION RATE > 60.0 (>60); GLUCOSE, FASTING 87 MG/DL (70-100); HDL CHOLESTEROL 39 MG/DL (>40); LDL CHOLESTEROL 118 MG/DL (<100); NON-HDL-C 143 MG/DL; POTASSIUM SERUM 3.7 MEQ/L (3.5-5.1); RHEUMATOID FACTOR QUANT < 10.0 IU/ML (<15.0); SODIUM LEVEL 140 MEQ/L (136-145); TOTAL PROTEIN 7.9 GM/DL (6.4-8.2); TRIGLYCERIDES LEVEL 123 MG/DL (<150)
== END ==
LOC: M LAB 07:13
PROVIDERS: ATTEND Nurse Practitioner Family
DX: M25.541 Pain in joints of right hand (principal)

== ENCOUNTER → 2020-05-18 | Outpatient (CLI) | payer BC ==
[2020-05-18 07:50] LABS: HEMATOCRIT 46.2 % (42.0-52.0); HEMOGLOBIN 15.9 g/dl (13.5-17.5); MEAN CORPUSCULAR HEMOGLOBIN 28.5 pg (27.0-33.0); MEAN CORPUSCULAR HGB CONC 34.4 g/dl (32.0-36.5); MEAN CORPUSCULAR VOLUME 82.8 fl (80.0-96.0); PLATELET COUNT, AUTOMATED 331 10^3/uL (150-450); RED BLOOD COUNT 5.58 10^6/uL (4.30-6.10); WHITE BLOOD COUNT 11.6 10^3/uL (4.0-10.0)
[2020-05-18 08:20] LABS: ERYTHROCYTE SEDIMENTATION RATE 10 mm/hr (0-15)
[2020-05-18 08:25] LABS: ALBUMIN 4.2 GM/DL (3.2-5.2); ALT/SGPT 36 U/L (12-78); BILIRUBIN,TOTAL 0.9 MG/DL (0.2-1.0); BLOOD UREA NITROGEN 12 MG/DL (7-18); C REACTIVE PROTEIN QUANTITATIV 0.46 MG/DL (0.00-0.30); CALCIUM LEVEL 9.2 MG/DL (8.5-10.1); CARBON DIOXIDE LEVEL 27 MEQ/L (21-32); CHLORIDE LEVEL 106 MEQ/L (98-107); CREATININE FOR GFR 0.96 MG/DL (0.70-1.30); GLOMERULAR FILTRATION RATE > 60.0 (>60); GLUCOSE, FASTING 86 MG/DL (70-100); MAGNESIUM LEVEL 2.1 MG/DL (1.8-2.4); POTASSIUM SERUM 3.7 MEQ/L (3.5-5.1); SODIUM LEVEL 140 MEQ/L (136-145); TOTAL PROTEIN 7.6 GM/DL (6.4-8.2)
== END ==
LOC: M LAB 07:11
PROVIDERS: ATTEND Nurse Practitioner Family
DX: K59.31 Toxic megacolon (principal); K21.9 Gastro-esophageal reflux disease without esophagitis; E55.9 Vitamin D deficiency, unspecified

== ENCOUNTER → 2021-06-07 | Outpatient (CLI) | payer BC ==
[~2021-06-07] MED LIST changes: +LOSA25TA13 PO; -LOSA25TA14 PO; +OMEP40CA4 PO; -OMEP40CA97 PO
== END ==
LOC: M SLEEP 20:00
PROVIDERS: ATTEND Internal Medicine Pulmonary Disease
DX: G47.33 Obstructive sleep apnea (adult) (pediatric) (principal)

== ENCOUNTER 2021-07-23 12:10 | Emergency (ER) | payer BC ==
[~2021-07-23] VITALS: Ht 165.1 cm; Wt 130.2 kg
[2021-07-23] MEDS ORDERED: LOSA50TA28 (12:25)
[2021-07-23] MEDS ORDERED: FURO20TA2 (12:25)
[2021-07-23] MEDS ORDERED: ACETAMINOPHEN 500 MG TAB PO ONE (13:30)
[2021-07-23] MEDS ORDERED: LIDOCAINE 5% (LIDODERM) PATCH TD ONE (14:55)
[2021-07-23 15:26] VITALS: BP 143/88
[2021-07-24] MEDS ORDERED: **NOTE PATIENT COMMENT** MISC XX ONE (03:00)
== END 2021-07-23 15:28 | disposition home or self-care (01) ==
LOC: M ED 12:10
DX: M75.31 Calcific tendinitis of right shoulder (principal); M75.51 Bursitis of right shoulder; S43.421A Sprain of right rotator cuff capsule, initial encounter; X58.XXXA Exposure to other specified factors, initial encounter; Y92.89 Other specified places as the place of occurrence of the external cause; I10 Essential (primary) hypertension; E78.5 Hyperlipidemia, unspecified; G47.30 Sleep apnea, unspecified; Z87.19 Personal history of other diseases of the digestive system; Z87.442 Personal history of urinary calculi; Z79.899 Other long term (current) drug therapy

== ENCOUNTER → 2021-07-27 | Outpatient (CLI) | payer BC ==
[~2021-07-27] MED LIST changes: +FURO20TA2; +LOSA50TA28
[2021-07-27 10:29] LABS: ALBUMIN 3.9 GM/DL (3.2-5.2); ALT/SGPT 34 U/L (12-78); BILIRUBIN,TOTAL 0.8 MG/DL (0.2-1.0); BLOOD UREA NITROGEN 14 MG/DL (7-18); CARBON DIOXIDE LEVEL 30 MEQ/L (21-32); CHLORIDE LEVEL 105 MEQ/L (98-107); CHOLESTEROL LEVEL 205 MG/DL (<200); CHOLESTEROL RISK RATIO 5.125 (<5); CREATININE FOR GFR 0.79 MG/DL (0.70-1.30); GLOMERULAR FILTRATION RATE > 60.0 (>56); GLUCOSE, FASTING 110 MG/DL (70-100); HDL CHOLESTEROL 40 MG/DL (>40); LDL CHOLESTEROL 124 MG/DL (<100); NON-HDL-C 165 MG/DL; POTASSIUM SERUM 4.1 MEQ/L (3.5-5.1); SODIUM LEVEL 139 MEQ/L (136-145); TOTAL PROTEIN 7.5 GM/DL (6.4-8.2); TRIGLYCERIDES LEVEL 203 MG/DL (<150)
[2021-07-27 10:37] LABS: MALB URINE SIEMENS 11.4 MG/L; MAU/CREAT RATIO 6.2 MCG/MG (0.0-30.0)
[2021-07-27 11:18] LABS: HEMOGLOBIN A1c 5.6 %
== END ==
LOC: M LAB 09:07
PROVIDERS: ATTEND Nurse Practitioner Family
DX: E78.5 Hyperlipidemia, unspecified (principal); I10 Essential (primary) hypertension; R73.03 Prediabetes; E55.9 Vitamin D deficiency, unspecified

== ENCOUNTER 2022-02-02 16:26 | Emergency (ER) | payer BC ==
[~2022-02-02] VITALS: Ht 165.1 cm; Wt 131.6 kg
[2022-02-02 19:35] VITALS: BP 139/96
== END 2022-02-02 19:51 | disposition home or self-care (01) ==
LOC: M ED 16:26
DX: S83.92XA Sprain of unspecified site of left knee, initial encounter (principal); Y92.009 Unspecified place in unspecified non-institutional (private) residence as the place of occurrence of the external cause; M17.12 Unilateral primary osteoarthritis, left knee; E66.9 Obesity, unspecified; I10 Essential (primary) hypertension; E78.5 Hyperlipidemia, unspecified; K21.9 Gastro-esophageal reflux disease without esophagitis; K51.919 Ulcerative colitis, unspecified with unspecified complications; Z79.899 Other long term (current) drug therapy

== ENCOUNTER → 2022-02-06 | Outpatient (CLI) | payer BC ==
[2022-02-06 20:59] LABS: ALBUMIN 4.2 G/DL (3.2-5.2); ALT/SGPT 32 U/L (7.0-40); BILIRUBIN,TOTAL 0.8 MG/DL (0.3-1.2); BLOOD UREA NITROGEN 16 MG/DL (9-23); CALCIUM LEVEL 10.5 MG/DL (8.5-10.1); CARBON DIOXIDE LEVEL 23 MMOL/L (20-31); CHLORIDE LEVEL 102 MMOL/L (98-107); CHOLESTEROL LEVEL 224 MG/DL (<200); CHOLESTEROL RISK RATIO 4.95 (<5); CREATININE FOR GFR 0.68 MG/DL (0.70-1.30); FREE T4 1.16 NG/DL (0.89-1.76); GLOMERULAR FILTRATION RATE > 60.0 (>56); GLUCOSE, FASTING 133 MG/DL (60-100); HDL CHOLESTEROL 45.2 MG/DL (>40); LDL CHOLESTEROL 153.2 MG/DL (<100); NON-HDL-C 179 MG/DL; POTASSIUM SERUM 4.2 MMOL/L (3.5-5.1); SODIUM LEVEL 141 MMOL/L (136-145); TOTAL 25(OH) VITAMIN D 42.3 NG/ML (20.0-100.0); TOTAL PROTEIN 7.6 G/DL; TRIGLYCERIDES LEVEL 128 MG/DL (<150)
[2022-02-06 20:59] LABS: CREATININE, URINE 154.6 MG/DL; MAU/CREAT RATIO 7.1 MCG/MG (0.0-30.0)
[2022-02-06 21:02] LABS: HEMOGLOBIN A1c 5.6 % (4.0-6.0)
== END ==
LOC: M LAB 15:50
PROVIDERS: ATTEND Nurse Practitioner Family
DX: R73.03 Prediabetes (principal); I10 Essential (primary) hypertension; E78.5 Hyperlipidemia, unspecified; E55.9 Vitamin D deficiency, unspecified; E66.01 Morbid (severe) obesity due to excess calories

== ENCOUNTER → 2022-07-25 | Outpatient (CLI) | payer OTHER ==
[2022-07-25 17:19] LABS: HEMOGLOBIN A1c 5.6 % (4.0-6.0)
[2022-07-25 17:32] LABS: ALKALINE PHOSPHATASE 97 U/L (46-116); ALT/SGPT 20 U/L (7.0-40); AST/SGOT 20 U/L (<34); BLOOD UREA NITROGEN 11 MG/DL (9-23); CALCIUM LEVEL 9.1 MG/DL (8.5-10.1); CARBON DIOXIDE LEVEL 26 MMOL/L (20-31); CHLORIDE LEVEL 106 MMOL/L (98-107); CHOLESTEROL LEVEL 175 MG/DL (<200); CHOLESTEROL RISK RATIO 4.44 (<5); CREATININE FOR GFR 0.72 MG/DL (0.70-1.30); GLOMERULAR FILTRATION RATE > 60.0 (>56); GLUCOSE, FASTING 91 MG/DL (60-100); HDL CHOLESTEROL 39.4 MG/DL (>40); LDL CHOLESTEROL 105.6 MG/DL (<100); NON-HDL-C 135.6 MG/DL; SODIUM LEVEL 141 MMOL/L (136-145); TOTAL PROTEIN 7.1 G/DL (5.7-8.2); TRIGLYCERIDES LEVEL 150 MG/DL (<150)
== END ==
LOC: M LAB 15:59
PROVIDERS: ATTEND Nurse Practitioner Family
DX: E78.5 Hyperlipidemia, unspecified (principal); I10 Essential (primary) hypertension; R73.03 Prediabetes

== ENCOUNTER → 2023-02-03 | Outpatient (CLI) | payer OTHER ==
[2023-02-03 09:51] LABS: HEMOGLOBIN A1c 5.4 % (4.0-6.0)
== END ==
LOC: M LAB 08:44
PROVIDERS: ATTEND Nurse Practitioner Family
DX: R73.03 Prediabetes (principal)

== ENCOUNTER → 2023-09-13 | Outpatient (CLI) | payer OTHER ==
[2023-09-13 11:33] LABS: HEMOGLOBIN A1c 5.7 % (4.0-6.0)
[2023-09-13 11:36] LABS: ALBUMIN 3.8 G/DL (3.2-5.2); ALKALINE PHOSPHATASE 102 U/L (46-116); ALT/SGPT 23 U/L (7.0-40); AST/SGOT 12 U/L (<34); BILIRUBIN,TOTAL 1.1 MG/DL (0.3-1.2); BLOOD UREA NITROGEN 11 MG/DL (9-23); CALCIUM LEVEL 9.1 MG/DL (8.5-10.1); CARBON DIOXIDE LEVEL 25 MMOL/L (20-31); CHLORIDE LEVEL 108 MMOL/L (98-107); CHOLESTEROL LEVEL 223 MG/DL (<200); CHOLESTEROL RISK RATIO 5.91 (<5); CREATININE FOR GFR 0.76 MG/DL (0.70-1.30); GLOMERULAR FILTRATION RATE > 60.0 (>56); GLUCOSE, FASTING 106 MG/DL (60-100); HDL CHOLESTEROL 37.7 MG/DL (>40); LDL CHOLESTEROL 151.7 MG/DL (<100); NON-HDL-C 185.3 MG/DL; POTASSIUM SERUM 4.1 MMOL/L (3.5-5.1); SODIUM LEVEL 139 MMOL/L (136-145); TOTAL PROTEIN 7.2 G/DL (5.7-8.2); TRIGLYCERIDES LEVEL 168 MG/DL (<150)
[2023-09-13 11:37] LABS: CREATININE, URINE 239.6 MG/DL
[2023-09-13 11:38] LABS: MAU/CREAT RATIO 5.8 MCG/MG (0.0-30.0)
[2023-09-13 11:39] LABS: TOTAL 25(OH) VITAMIN D 42.4 NG/ML (20.0-100.0)
== END ==
LOC: M LAB 09:37
PROVIDERS: ATTEND Nurse Practitioner Family
DX: I10 Essential (primary) hypertension (principal); R73.03 Prediabetes; E78.5 Hyperlipidemia, unspecified; E55.9 Vitamin D deficiency, unspecified

== ENCOUNTER → 2023-09-13 | Outpatient (CLI) | payer OTHER ==
[2023-09-13 11:03] LABS: HEMATOCRIT 46.6 % (42.0-52.0); HEMOGLOBIN 16.1 g/dl (13.5-17.5); MEAN CORPUSCULAR HEMOGLOBIN 28.9 pg (27.0-33.0); MEAN CORPUSCULAR HGB CONC 34.5 g/dl (32.0-36.5); MEAN CORPUSCULAR VOLUME 83.5 fl (80.0-96.0); PLATELET COUNT, AUTOMATED 330 10^3/uL (150-450); RED BLOOD COUNT 5.58 10^6/uL (4.30-6.10); WHITE BLOOD COUNT 10.9 10^3/uL (4.0-10.0)
[2023-09-13 11:20] LABS: ERYTHROCYTE SEDIMENTATION RATE 33 mm/hr (0-20)
[2023-09-13 11:37] LABS: ALBUMIN 3.9 G/DL (3.2-5.2); ALKALINE PHOSPHATASE 101 U/L (46-116); ALT/SGPT 26 U/L (7.0-40); AST/SGOT 17 U/L (<34); BILIRUBIN,TOTAL 1.2 MG/DL (0.3-1.2); BLOOD UREA NITROGEN 11 MG/DL (9-23); CALCIUM LEVEL 9.3 MG/DL (8.5-10.1); CARBON DIOXIDE LEVEL 25 MMOL/L (20-31); CHLORIDE LEVEL 105 MMOL/L (98-107); CREATININE FOR GFR 0.73 MG/DL (0.70-1.30); GLOMERULAR FILTRATION RATE > 60.0 (>56); GLUCOSE, FASTING 105 MG/DL (60-100); SODIUM LEVEL 138 MMOL/L (136-145); TOTAL PROTEIN 7.3 G/DL (5.7-8.2)
== END ==
LOC: M LAB 09:40
PROVIDERS: ATTEND Physician Assistant
DX: K59.31 Toxic megacolon (principal); K21.9 Gastro-esophageal reflux disease without esophagitis; R10.9 Unspecified abdominal pain; K62.5 Hemorrhage of anus and rectum

== ENCOUNTER 2024-02-04 08:34 | Day surgery (SDC) | payer OTHER ==
[~2024-02-04] VITALS: Ht 165.1 cm; Wt 123.3 kg
[~2024-02-04 08:34] MED LIST changes: +FURO20TA2 PO; +LOSA100T46 PO; +NS 250 ML IV ONE; +PROBCAP14 PO; +VITA100093 PO; +[UNRECOGNIZED DRUG - CODE] PO
[2024-02-04] MEDS ORDERED: propofoL 500 MG/50 ML VIAL As Ordered ONE (09:52)
[2024-02-04] MEDS ORDERED: LIDOCAINE 2% 100MG/5ML SDV (FOR ANES.) As Ordered ONE (09:52)
[2024-02-04] MEDS ORDERED: dexmedeTOMIDine (4MCG/ML)200MCG/50ML BTL (PRECEDEX) As Ordered ONE (09:52)
[2024-02-04 10:35] VITALS: BP 139/69; O2SAT 94
== END 2024-02-04 10:40 | disposition home or self-care (01) ==
LOC: M OPP 08:34
PROVIDERS: ATTEND Surgery
DX: D12.6 Benign neoplasm of colon, unspecified (principal); Z86.0100 Personal history of colon polyps, unspecified; K64.2 Third degree hemorrhoids; I10 Essential (primary) hypertension; E78.5 Hyperlipidemia, unspecified; K21.9 Gastro-esophageal reflux disease without esophagitis; M19.90 Unspecified osteoarthritis, unspecified site; G47.33 Obstructive sleep apnea (adult) (pediatric); Z99.89 Dependence on other enabling machines and devices; Z79.899 Other long term (current) drug therapy

== ENCOUNTER → 2024-03-17 | Outpatient (CLI) | payer OTHER ==
[~2024-03-17] MED LIST changes: -NS 250 ML IV ONE
[2024-03-17 07:53] LABS: BASO # 0.1 10^3/uL (0.0-0.2); BASO % 0.7 % (0.0-1.0); EOS # 0.2 10^3/uL (0.0-0.5); EOS % 1.7 % (0.0-3.0); HEMATOCRIT 44.9 % (42.0-52.0); HEMOGLOBIN 15.6 g/dl (13.5-17.5); LYMPH # 2.4 10^3/uL (1.5-5.0); LYMPH % 25.8 % (24.0-44.0); MEAN CORPUSCULAR HEMOGLOBIN 29.2 pg (27.0-33.0); MEAN CORPUSCULAR HGB CONC 34.7 g/dl (32.0-36.5); MEAN CORPUSCULAR VOLUME 83.9 fl (80.0-96.0); MONO # 0.6 10^3/uL (0.0-0.8); NEUTROPHILS # 5.9 10^3/uL (1.5-8.5); NEUTROPHILS % 64.5 % (36.0-66.0); PLATELET COUNT, AUTOMATED 314 10^3/uL (150-450); RED BLOOD COUNT 5.35 10^6/uL (4.30-6.10); WHITE BLOOD COUNT 9.2 10^3/uL (4.0-10.0)
[2024-03-17 08:10] LABS: HEMOGLOBIN A1c 5.6 % (4.0-6.0)
[2024-03-17 08:15] LABS: URIC ACID 8.1 MG/DL (3.7-9.2)
[2024-03-17 08:18] LABS: ALBUMIN 3.7 G/DL (3.2-5.2); ALKALINE PHOSPHATASE 94 U/L (40-129); ALT/SGPT 28 U/L (7.0-40); AST/SGOT 18 U/L (<34); BILIRUBIN,TOTAL 1.1 MG/DL (0.3-1.2); BLOOD UREA NITROGEN 12 MG/DL (9-23); C REACTIVE PROTEIN QUANTITATIV 0.54 MG/DL (<1.0); CALCIUM LEVEL 9.4 MG/DL (8.5-10.1); CARBON DIOXIDE LEVEL 27 MMOL/L (20-31); CHLORIDE LEVEL 106 MMOL/L (98-107); CHOLESTEROL LEVEL 188 MG/DL (<200); CHOLESTEROL RISK RATIO 5.19 (<5); CREATININE FOR GFR 0.85 MG/DL (0.70-1.30); GLOMERULAR FILTRATION RATE > 60.0 (>56); GLUCOSE, FASTING 109 MG/DL (60-100); HDL CHOLESTEROL 36.2 MG/DL (>40); LDL CHOLESTEROL 123.2 MG/DL (<100); NON-HDL-C 151.8 MG/DL; POTASSIUM SERUM 3.9 MMOL/L (3.5-5.1); RHEUMATOID FACTOR QUANT < 3.5 IU/ML (<14); SODIUM LEVEL 142 MMOL/L (136-145); TOTAL PROTEIN 7.3 G/DL (5.7-8.2); TRIGLYCERIDES LEVEL 143 MG/DL (<150)
[2024-03-17 08:20] LABS: TOTAL 25(OH) VITAMIN D 45.7 NG/ML (20.0-100.0)
[2024-03-17 08:24] LABS: ERYTHROCYTE SEDIMENTATION RATE 16 mm/hr (0-20)
[2024-03-19 08:17] LABS: ANA SCREEN, IFA NEGATIVE (NEGATIVE)
[2024-03-19 12:02] LABS: SSA SJOGRENS A <1.0 NEG AI (<1.0 NEG); SSB SJOGRENS B <1.0 NEG AI (<1.0 NEG)
[2024-03-19 12:47] LABS: CYCLIC CITRULLINATED PEPTIDE < 16 UNITS (<20)
[2024-03-20 20:28] LABS: LYME TOTAL ANTIBODY CIA <= 0.90 Index (<=0.90)
[2024-03-21 10:58] LABS: HLA-B27 Negative (Negative)
== END ==
LOC: M LAB 07:18
PROVIDERS: ATTEND Nurse Practitioner Family
DX: I10 Essential (primary) hypertension (principal); R73.03 Prediabetes; E78.5 Hyperlipidemia, unspecified; E55.9 Vitamin D deficiency, unspecified; M12.9 Arthropathy, unspecified

== ENCOUNTER → 2025-02-10 | Outpatient (REF) | payer OTHER ==
[~2025-02-10] MED LIST changes: -FLOM0.4C39 PO; +TAMS-18 PO
[2025-02-10 14:31] LABS: BASO # 0.1 10^3/uL (0.0-0.2); BASO % 0.8 % (0.0-1.0); EOS # 0.1 10^3/uL (0.0-0.5); EOS % 1.6 % (0.0-3.0); LYMPH # 2.3 10^3/uL (1.5-5.0); LYMPH % 26.0 % (24.0-44.0); MONO # 0.7 10^3/uL (0.0-0.8); MONO % 8.2 % (2.0-8.0); NEUTROPHILS # 5.5 10^3/uL (1.5-8.5); NEUTROPHILS % 63.1 % (36.0-66.0); PLATELET COUNT, AUTOMATED 332 10^3/uL (150-450)
[2025-02-10 14:52] LABS: ESTIMATED AVERAGE GLUCOSE 126.0 MG/DL (60-110)
[2025-02-10 15:00] LABS: PSA SCREENING 7.99 NG/ML (< 4.00)
[2025-02-10 15:02] LABS: ALT/SGPT 28 U/L (7.0-40); AST/SGOT 20 U/L (<34); CALCIUM LEVEL 9.5 MG/DL (8.5-10.1); CARBON DIOXIDE LEVEL 26 MMOL/L (20-31); CHLORIDE LEVEL 107 MMOL/L (98-107); CHOLESTEROL LEVEL 243 MG/DL (<200); CHOLESTEROL RISK RATIO 5.67 (<5); CREATININE FOR GFR 0.79 MG/DL (0.70-1.30); GLOMERULAR FILTRATION RATE > 90.0 (>56); LDL CHOLESTEROL 166.2 MG/DL (<100); NON-HDL-C 200.2 MG/DL; POTASSIUM SERUM 3.9 MMOL/L (3.5-5.1); SODIUM LEVEL 144 MMOL/L (136-145); TRIGLYCERIDES LEVEL 170 MG/DL (<150)
[2025-02-10 15:04] LABS: TOTAL 25(OH) VITAMIN D 47.3 NG/ML (20.0-100.0)
== END ==
LOC: M PLALAB 13:16
PROVIDERS: ATTEND Nurse Practitioner Family
DX: R35.0 Frequency of micturition (principal); I10 Essential (primary) hypertension; E55.9 Vitamin D deficiency, unspecified; E78.5 Hyperlipidemia, unspecified; R73.03 Prediabetes
CPT/HCPCS: 36415; 80053; 80061; 82306; 83036; 85025; G0103

== ENCOUNTER → 2025-03-16 | Outpatient (CLI) | payer OTHER | LOC: M RAD 14:59 | PROVIDERS: ATTEND Nurse Practitioner Family | DX: I65.23 Occlusion and stenosis of bilateral carotid arteries (principal) ==